=== PATIENT | male | born 1960 | race Hispanic/Latino ===

== ENCOUNTER 2017-04-17 14:24 | Emergency (ER) | payer MEDICAID ==
[2017-04-17 14:37] VITALS: TEMP 98.2
[2017-04-17] MEDS ORDERED: Albuterol-Ipratrop 3 mg / 0.5 (3 ml) UD INH STA (14:56)
--- NOTE | 2017-04-17 15:06 | ED PDOC ---
HPI: SOB/CHF/COPD Time Seen by Provider: 04/17/17 14:37 Chief Complaint (Nursing): Shortness Of Breath History Per: Patient History/Exam Limitations: no limitations Onset/Duration Of Symptoms: Days (3) Current Symptoms Are (Timing): Better Initiating Event: Exposure To Mold Quality: Tightness Exacerbating Factor(s): Exertion, Laying Flat, Coughing Current Respiratory Medications: Albuterol Severity: Moderate Pain Scale Rating Of: 0 Associated Symptoms: Chills, Sweating, Productive Cough. denies: Fever, Chest Pain, Bloody Cough, Heart Racing, Leg/Calf Pain, Ankle/Leg Swelling, Dizziness, Light-headedness Additional History Per: Patient Additional Complaint(s): Pt c/o dyspnea on exertion and at night associated with productive cough for 3 days. Pt started on albuterol from the pharmacy that he used today with some relief. Denies chest pain, fever, or leg swelling. History of smoking for many years in the past. - Risk Factors PE Risk Factors: Neg: Extremity Immobilization/Fx, Previous DVT, Previous PE, CHF Past Medical History Reviewed: Historical Data, Nursing Documentation, Vital Signs Vital Signs: Last Vital Signs Temp 98.2 F 04/17/17 16:54 Pulse 76 04/17/17 16:56 Resp 20 04/17/17 16:54 BP 111/71 04/17/17 16:54 Pulse Ox 99 04/17/17 16:56 - Medical History PMH: Bronchitis - Surgical History Surgical History: No Surg Hx - Family History Family History: States: No Known Family Hx - Home Medications Home Medications: Ambulatory Orders Medication Instructions Recorded Albuterol HFA [Ventolin HFA 90 2 puff IH Q4 PRN #1 inh 04/17/17 mcg/actuation (8 g)] Azithromycin [Z-Alin] 250 mg PO DAILY #6 tab 04/17/17 Prednisone 50 mg PO DAILY #5 tablet 04/17/17 - Allergies Allergies/Adverse Reactions: Allergies Allergy/AdvReac Type Severity Reaction Status Date / Time No Known Allergies Allergy Verified 04/17/17 14:38 Wells Criteria for PE - Wells Criteria for Pulmonary Embolism Clinical Signs and Symptoms of DVT: No P.E is #1 Diagnosis, or Equally Likely: No Heart Rate >100: No Immobilization at least 3 days;Surgery previous 4 weeks: No Previous, objectively diagnosed PE or DVT: No Hemoptysis: No Malignancy w/treatment within 6 months, or palliative: No Total Score: 0 Review of Systems ROS Statement: Except As Marked, All Systems Reviewed And Found Negative Physical Exam - Reviewed Nursing Documentation Reviewed: Yes Vital Signs Reviewed: Yes - Physical Exam Appears: Positive for: Non-toxic, No Acute Distress Head Exam: Positive for: ATRAUMATIC Skin: Positive for: Warm, Dry Eye Exam: Positive for: EOMI Neck: Positive for: Painless ROM, Supple Cardiovascular/Chest: Positive for: Regular Rate, Rhythm. Negative for: Tachycardia Respiratory: Positive for: Wheezing (occasional). Negative for: Accessory Muscle Use, Rales Gastrointestinal/Abdominal: Positive for: Soft. Negative for: Tenderness Extremity: Positive for: Normal ROM. Negative for: Calf Tenderness, Swelling Neurologic/Psych: Positive for: Alert, Oriented - Laboratory Results Result Diagrams: 04/17/17 15:20 04/17/17 15:20 - ECG ECG: Positive for: Interpreted By Me, Viewed By Me ECG Rhythm: Positive for: Normal QRS, Normal ST Segment, Sinus Rhythm. Negative for: ST/T Changes Rate: 76 O2 Sat by Pulse Oximetry: 99 - Radiology X-Ray: Interpreted by Me, Viewed By Me X-Ray Interpretation: No Acute Disease, COPD - Progress Re-evaluation Time: 16:30 Condition: Re-examined, Improved Nebulizer Treatments/Peak Flow - Duonebs Number of Bronchodilator Doses given?: 1 - Steroid Treatment Steroid: Oral - Clinical Response Clinical Response: Improved Medical Decision Making Medical Decision Making: Dyspnea Diff include COPD exacerbation, acute bronchitis, pneumonia, CHF Plan Labs CXR EKG duoneb INH prednisone 60 mg PO reassess Disposition - Clinical Impression Clinical Impression: Bronchitis - Patient ED Disposition Is Patient to be Admitted: No Doctor Will See Patient In The: Office Counseled Patient/Family Regarding: Studies Performed, Diagnosis, Need For Followup - Disposition Referrals: Varun Warren MD [Staff Provider] - Disposition: Routine/Home Disposition Time: 16:53 Condition: GOOD Additional Instructions: Take medications as instructed. Follow up with your PCP in 2-3 days. Prescriptions: Albuterol HFA [Ventolin HFA 90 mcg/actuation (8 g)] 2 puff IH Q4 PRN #1 inh PRN Reason: Wheezing Azithromycin [Z-Alin] 250 mg PO DAILY #6 tab Prednisone 50 mg PO DAILY #5 tablet Instructions: Acute Bronchitis (ED)
[2017-04-17 15:29] LABS: BASO # 0.1 K/uL (0.0-0.2); BASO % 1.1 % (0.0-2.0); EOS # 0.9 K/uL (0.0-0.7); EOS % 7.5 % (0.0-4.0); HEMOGLOBIN 13.7 g/dL (12.0-18.0); LYMPH # 3.4 K/uL (1.0-4.3); LYMPH % 29.7 % (20.0-40.0); MEAN CELL VOLUME 88.5 fl (80.0-94.0); MEAN CORPUSCULAR HEMOGLOBIN 30.1 pg (27.0-31.0); MEAN CORPUSCULAR HGB CONC 34.1 g/dL (33.0-37.0); MEAN PLATELET VOLUME 7.5 fl (7.2-11.7); MONO % 8.6 % (0.0-10.0); NEUT % 53.1 % (50.0-75.0); RBC 4.56 Mil/uL (4.40-5.90); WHITE BLOOD COUNT 11.3 K/uL (4.8-10.8)
[2017-04-17] MEDS ORDERED: Albuterol-Ipratrop 3 mg / 0.5 (3 ml) UD ONE (15:34)
[2017-04-17 15:47] LABS: BLOOD UREA NITROGEN 15 mg/dl (9-20); CALCIUM 9.6 mg/dL (8.4-10.2); GFR AFRICAN-AMERICAN > 60; GFR NON-AFRICAN AMERICAN > 60
[2017-04-17 15:53] LABS: B-TYPE NATRIURETIC PEPTIDE 91.9 pg/ml (0-900)
[2017-04-17 16:54] VITALS: BP 111/71; RESP 20
[2017-04-17 16:56] VITALS: PULSE 76; O2SAT 99
--- NOTE | 2017-04-17 17:05 | RAD ---
HISTORY: Dyspnea. COMPARISON: No prior. TECHNIQUE: Chest PA and lateral FINDINGS: LUNGS: No active pulmonary disease. PLEURA: No significant pleural effusion identified. No pneumothorax apparent. CARDIOVASCULAR: Normal. OSSEOUS STRUCTURES: No significant abnormalities. VISUALIZED UPPER ABDOMEN: Normal. OTHER FINDINGS: None. IMPRESSION: No active disease. No preliminary report provided by emergency department personnel.
--- NOTE | 2017-04-19 00:07 | CARD ---
APPROVED REPORT EKG Measurement Heart [id number] <Conclusion> Normal sinus rhythm Early repolarization pattern vs pericarditis
== END 2017-04-17 17:15 | disposition home or self-care (01) ==
LOC: H.ER 14:24 → MERGE 14:24 → H.ER 17:15
DX: J40 Bronchitis, not specified as acute or chronic (principal)

== ENCOUNTER 2018-06-22 19:48 | Emergency (ER) | payer MEDICAID ==
[2018-06-22 20:01] VITALS: TEMP 98.5; O2SAT 99
[2018-06-22 23:58] LABS: BASO % 0.4 % (0.0-2.0); EOS # 0.5 K/uL (0.0-0.7); EOS % 5.1 % (0.0-4.0); HEMOGLOBIN 13.6 g/dL (12.0-18.0); LYMPH # 3.1 K/uL (1.0-4.3); MEAN CELL VOLUME 90.7 fl (80.0-94.0); MEAN CORPUSCULAR HGB CONC 34.2 g/dL (33.0-37.0); MEAN PLATELET VOLUME 6.9 fl (7.2-11.7); NEUT % 56.5 % (50.0-75.0); RBC 4.4 Mil/uL (4.40-5.90); RED CELL DISTRIBUTION WIDTH 14.4 % (11.5-14.5); WHITE BLOOD COUNT 10.6 K/uL (4.8-10.8)
[2018-06-23 00:05] VITALS: RESP 18
[2018-06-23 00:07] LABS: BLOOD UREA NITROGEN 15 mg/dl (9-20); CALCIUM 9.3 mg/dL (8.4-10.2); GFR NON-AFRICAN AMERICAN > 60
[2018-06-23] MEDS ORDERED: Sodium Chloride 0.9% 50 ML IV ONE (00:13)
[2018-06-23] MEDS ORDERED: Iodixanol 320 MG/ML 100 ML BOTTLE IV ONE (00:13)
[2018-06-23 00:22] LABS: B-TYPE NATRIURETIC PEPTIDE 180 pg/ml (0-900)
[2018-06-23] MEDS ORDERED: Albuterol-Ipratrop 3 mg / 0.5 (3 ml) UD INH STA (01:54)
--- NOTE | 2018-06-23 02:01 | ED PDOC ---
HPI: SOB/CHF/COPD Time Seen by Provider: 06/22/18 21:19 Chief Complaint (Nursing): Shortness Of Breath Chief Complaint (Provider): Cough History Per: Patient History/Exam Limitations: no limitations Onset/Duration Of Symptoms: Days (one month), Worse Since (a few days ago) Current Symptoms Are (Timing): Still Present Additional Complaint(s): 57 year old male with a history of bronchitis presents to the E with cough that started a month ago. Patient reports cough has gotten worse in the last couple of days. He states he has a chronic dry cough with associated chest pain that radiates to upper back. Patient has difficulty breathing because he cannot take deep breaths. He denies dizziness, headache, weakness, numbness, leg swelling, fever or any other medical complaints. PMD: none Past Medical History Reviewed: Historical Data, Nursing Documentation, Vital Signs Vital Signs: Last Vital Signs Temp 98.5 F 06/22/18 19:58 Pulse 92 H 06/23/18 02:25 Resp 18 06/23/18 02:25 BP 122/78 06/23/18 02:25 Pulse Ox 99 06/23/18 02:40 - Medical History PMH: Bronchitis - Surgical History Surgical History: Endoscopy - Family History Family History: States: Unknown Family Hx - Home Medications Home Medications: Ambulatory Orders Medication Instructions Recorded Albuterol HFA [Ventolin HFA 90 2 puff IH Q4 PRN #1 inh 06/23/18 mcg/actuation (8 g)] Azithromycin [Z-Alin] 250 mg PO DAILY #6 tab 06/23/18 Prednisone 50 mg PO DAILY #5 tablet 06/23/18 - Allergies Allergies/Adverse Reactions: Allergies Allergy/AdvReac Type Severity Reaction Status Date / Time No Known Allergies Allergy Verified 06/22/18 19:58 Wells Criteria for PE - Wells Criteria for Pulmonary Embolism Clinical Signs and Symptoms of DVT: No P.E is #1 Diagnosis, or Equally Likely: Yes Heart Rate >100: No Immobilization at least 3 days;Surgery previous 4 weeks: No Previous, objectively diagnosed PE or DVT: No Hemoptysis: No Malignancy w/treatment within 6 months, or palliative: No Total Score: 1 Review of Systems ROS Statement: Except As Marked, All Systems Reviewed And Found Negative Constitutional: Negative for: Fever Cardiovascular: Positive for: Chest Pain Respiratory: Positive for: Cough Musculoskeletal: Positive for: Shoulder Pain, Back Pain (upper), Other (no leg swelling) Neurological: Positive for: Other (no lightheadedness). Negative for: Weakness , Numbness, Dizziness Physical Exam - Reviewed Nursing Documentation Reviewed: Yes Vital Signs Reviewed: Yes - Physical Exam Appears: Positive for: Non-toxic, No Acute Distress Head Exam: Positive for: ATRAUMATIC, NORMAL INSPECTION, NORMOCEPHALIC Skin: Positive for: Normal Color, Warm Eye Exam: Positive for: Normal appearance, EOMI, PERRL ENT: Positive for: Normal ENT Inspection Neck: Positive for: Normal Cardiovascular/Chest: Positive for: Regular Rate, Rhythm. Negative for: Murmur Respiratory: Positive for: Normal Breath Sounds. Negative for: Respiratory Distress Gastrointestinal/Abdominal: Positive for: Normal Exam, Soft. Negative for: Tenderness Back: Positive for: Normal Inspection Extremity: Positive for: Normal ROM Neurologic/Psych: Positive for: Alert, Oriented (x3) - Laboratory Results Result Diagrams: 06/22/18 23:49 06/22/18 23:49 - ECG O2 Sat by Pulse Oximetry: 99 (RA) Pulse Ox Interpretation: Normal Medical Decision Making Medical Decision Making: Time: 2321 Initial Impression: Chest pain, cough, and dyspnea Differential diagnoses include but are not limited to: acute or chronic bronchitis, rule out PE, pna and aortic dissection Initial Plan: --CT angio chest --EKG --B-type natriuretic peptide --BMP --Troponin --CBC with differentials --CXR --Duoneb 3 ml INH --prednisone 60 mg PO --peak flow pre/post treatment Time: 129 CT Angio: FINDINGS: Pulmonary arteries: Unremarkable. No pulmonary embolism. Aorta: No acute findings. No thoracic aortic aneurysm. Lungs: Unremarkable. No mass nor consolidation. Mild bronchiectasis. Pleural space: Unremarkable. No significant pleural effusions. No pneumothorax. Heart: Unremarkable. No cardiomegaly. No significant pericardial effusion. No evidence of RV dysfunction. Bones/joints: No acute fracture nor dislocation. Soft tissues: Unremarkable. Lymph nodes: Unremarkable. No enlarged lymph nodes. IMPRESSION: No acute chest pathology. No filling defects suspicious for pulmonary emboli are seen. There is no CT evidence of aortic dissection nor leakage. No aortic aneurysm is appreciated. Scribe Attestation: Documented by Bri Wellington, acting as a scribe for Lilian Kelley MD Provider Scribe Attestation: All medical record entries made by the Scribe were at my direction and personally dictated by me. I have reviewed the chart and agree that the record accurately reflects my personal performance of the history, physical exam, medical decision making, and the department course for this patient. I have also personally directed, reviewed, and agree with the discharge instructions and disposition. Disposition - Clinical Impression Clinical Impression: Bronchitis, Chest pain - Patient ED Disposition Is Patient to be Admitted: No Doctor Will See Patient In The: Office Counseled Patient/Family Regarding: Studies Performed, Diagnosis, Need For Followup - Disposition Referrals: [facility] [Outside] Disposition: Routine/Home Disposition Time: 02:00 Condition: GOOD Additional Instructions: BUD SONI, thank you for letting us take care of you today. Your provider was Lilian Kelley MD and you were treated for SOB/COUGHING. The emergency medical care you received today was directed at your acute symptoms. If you were prescribed any medication, please fill it and take as directed. It may take several days for your symptoms to resolve. Return to the Emergency Department if your symptoms worsen, do not improve, or if you have any other problems. Please contact your doctor or call one of the physicians/clinics you have been referred to that are listed on the Patient Visit Information form that is included in your discharge packet. Bring any paperwork you were given at discharge with you along with any medications you are taking to your follow up visit. Our treatment cannot replace ongoing medical care by a primary care provider outside of the emergency department. Thank you for allowing the [facility] team to be part of your care today. If you had an X-Ray or CT scan: A Radiologist will review the ED reading if any change in treatment is needed we will contact you. If you had a blood, urine, or wound culture: It will take several days for the results, if any change in treatment is needed we will contact you. If you had an STI test: It will take 48 hours for the results. Please call after 1 week if you have not heard back. Prescriptions: Albuterol HFA [Ventolin HFA 90 mcg/actuation (8 g)] 2 puff IH Q4 PRN #1 inh PRN Reason: Wheezing Azithromycin [Z-Alin] 250 mg PO DAILY #6 tab Prednisone 50 mg PO DAILY #5 tablet Instructions: Chest Pain, Chronic Bronchitis, Acute Bronchitis MARCE Risk Score for UA/NSTEMI - MARCE Risk Score Age > 64: NO 3 or more CAD Risk Factors: NO Known CAD (Stenosis greater than 50%): NO Aspirin use in past 7 days: NO Severe Angina: NO EKG ST changes greater than 0.5mm: NO Positive Cardiac Marker: NO MARCE Score: 0 % risk at 14 days of: all cause mortality, new or recurrent GA, or severe recurrent ischemia requiring urgen revascularization: 5%
[2018-06-23] MEDS ORDERED: Albuterol-Ipratrop 3 mg / 0.5 (3 ml) UD ONE (02:06)
[2018-06-23 02:26] VITALS: BP 122/78; PULSE 92
--- NOTE | 2018-06-23 09:35 | CT ---
Date of service: 06/23/2018 PROCEDURE: CT Chest with contrast (Pulmonary Angiogram) HISTORY: chest pain dyspnea COMPARISON: None available. TECHNIQUE: Axial computed tomography images were obtained of the chest in the pulmonary arterial phase of enhancement. Coronal and sagittal reformatted images were created and reviewed. Intravenous contrast dose: Radiation dose: Total exam DLP = mGy-cm. This CT exam was performed using one or more of the following dose reduction techniques: Automated exposure control, adjustment of the mA and/or kV according to patient size, and/or use of iterative reconstruction technique. FINDINGS: PULMONARY ARTERIES: Unremarkable. No pulmonary embolism. AORTA: No acute findings. No thoracic aortic aneurysm. LUNGS: Mild centrilobular emphysema. PLEURAL SPACES: Unremarkable. No effusion or pneumothorax. HEART: Unremarkable. No cardiomegaly. No significant pericardial effusion. LYMPH NODES: No lymphadenopathy. BONES, CHEST WALL: Unremarkable. No fracture or destructive lesion OTHER FINDINGS: Unremarkable. IMPRESSION: No pulmonary embolism.
--- NOTE | 2018-06-23 09:47 | RAD ---
Date of service: 06/22/2018 PROCEDURE: CHEST RADIOGRAPH, 1 VIEW HISTORY: chest pain dyspnea COMPARISON: None available. FINDINGS: LUNGS: Clear. PLEURA: No pneumothorax or pleural fluid seen. CARDIOVASCULAR: Normal. OSSEOUS STRUCTURES: No significant abnormalities. VISUALIZED UPPER ABDOMEN: Normal. OTHER FINDINGS: None. IMPRESSION: No active disease.
--- NOTE | 2018-06-23 10:56 | CARD ---
APPROVED REPORT Date of service: 06/22/2018 <Conclusion> Normal sinus rhythm Normal ECG
== END 2018-06-23 02:24 | disposition home or self-care (01) ==
LOC: H.ER 19:48
DX: J40 Bronchitis, not specified as acute or chronic (principal); R07.89 Other chest pain
CPT/HCPCS: 71045; 71275; 80048; 83880; 84484; 85025; 93005; 94640; 99283; Q9967